=== PATIENT | female | born 1950 | race Caucasian/White ===

== ENCOUNTER 2017-07-17 00:56 | Observation (INO) | payer MEDICARE, OTHER ==
--- NOTE | 2017-07-16 22:36 | HISTORY AND PHYSICAL ---
DATE OF ADMISSION: July 17, 2017 CHIEF COMPLAINT Pelvic pain. HISTORY OF PRESENT ILLNESS The patient is a 67-year-old 5, para 4, with pelvic pain worsening over the past several months. She reports pain with intercourse and during the workup was noted to have leiomyomas within the uterus itself. The intensity was moderate and was aggravated by intercourse. After discussion of risks and alternatives, the patient desired to proceed with laparoscopic-assisted vaginal hysterectomy, bilateral salpingo-oophorectomy, modified Rivera culdoplasty, and diagnostic cystoscopy. MEDICATIONS 1. Vitamin B12. 2. Multivitamin. 3. Co-enzyme Q10. ALLERGIES No known drug allergies. REVIEW OF SYSTEMS GENITOURINARY: Per HPI. GENERAL, SKIN, EYES, EARS, NOSE, MOUTH, NECK, RESPIRATORY, CARDIOVASCULAR, GASTROINTESTINAL, NEUROLOGICAL, AND PSYCHIATRIC: All reviewed and noncontributory. PAST MEDICAL HISTORY Four vaginal deliveries. SURGICAL HISTORY In 2006, she had a hernia repair. FAMILY HISTORY Brother with cancer of the stomach. Father with stroke. Sister with lymphoma. SOCIAL HISTORY She does not drink alcohol. She is an everyday smoker one and a half packs a day. Sexually active. . No illicit drug use. PHYSICAL EXAMINATION VITAL SIGNS: BP 140/82, temp 97.2, weight 99.8. CONSTITUTIONAL: Well-developed, well-nourished female in no distress. SKIN: Without rash or lesions. NECK: Supple, without masses. HEART: Regular rate and rhythm. LUNGS: Clear to auscultation bilaterally. ABDOMEN: Soft, nontender, nondistended. Bowel sounds positive. EXTREMITIES: Nontender. No edema. PSYCHIATRIC: Alert and oriented times three. Normal mood and affect. PELVIC: Normal external female genitalia. Poorly estrogenized vaginal lining. Cervix normal. Uterus anteverted, normal size, and nontender. No adnexal masses or tenderness. ASSESSMENT AND PLAN Pelvic with dyspareunia and leiomyomata. Plan to perform laparoscopic-assisted vaginal hysterectomy, bilateral salpingo-oophorectomy, modified Rivera culdoplasty, and diagnostic cystoscopy. [facility]
[~2017-07-17] VITALS: Ht 149.9 cm; Wt 45.8 kg
[~2017-07-17 00:56] MED LIST: CHOL10005 PO; CYA1000 PO; LOR5/325 PO; MULT1CAP59 PO; NO CURRENT MEDS; OMEP-218 PO; ONDA4TAB9 PO; POTA99TA6 PO; UBID30CA27 PO
[2017-07-17] MEDS ORDERED: fentaNYL CITR 250 MCG/5 ML AMP ONE (08:25)
[2017-07-17] MEDS ORDERED: PROPOFOL EMUL(*) 10MG/ML 20 ML 20 ML ONE (08:31)
[2017-07-17] MEDS ORDERED: LIDOCAINE MPF 1% 5 ML VIAL ONE (08:32)
[2017-07-17] MEDS ORDERED: CELECOXIB 200 MG CAP PO ONE (09:15)
[2017-07-17] MEDS ORDERED: cefOXitin/DEX(*) 2GM/50ML PREM 50 ML IVPB ONE (09:15)
[2017-07-17] MEDS ORDERED: NORMOSOL R SOLN(*) 1000 ML BAG 1,000 ML IV PRN (09:15)
[2017-07-17] MEDS ORDERED: MIDAZOLAM 2 MG/2 ML VIAL IVP ONE (09:15)
[2017-07-17] MEDS ORDERED: HYDROmorphone HCL 2 MG TAB PO ONE (09:15)
[2017-07-17] MEDS ORDERED: LIDOCAINE/SOD BICARB 8.4% SYR ID ONE (09:15)
[2017-07-17] MEDS ORDERED: PHENAZOPYRIDINE 200 MG TAB PO ONE (09:15)
[2017-07-17] MEDS ORDERED: FAMOTIDINE 20 MG TAB PO ONE (09:15)
[2017-07-17 09:29] VITALS: BP 166/94
[2017-07-17 09:30] LABS: PLATELET COUNT, AUTOMATED 217 K/uL (150-450)
[2017-07-17] MEDS ORDERED: SCOPOLAMINE 1.5 MG PATCH TD ONE (09:31)
[2017-07-17] MEDS ORDERED: ROPIVACAINE 0.2% 20 ML VIAL ONE (10:11)
[2017-07-17] MEDS ORDERED: LIDOCAINE/SOD BICARB 8.4% SYR ONE (10:20)
[2017-07-17] MEDS ORDERED: DEXAMETHASONE SOD 4 MG/ML VIAL ONE (10:30)
[2017-07-17] MEDS ORDERED: ROCURONIUM BROM 10 MG/ML 5 ML ONE (10:30)
[2017-07-17] MEDS ORDERED: ONDANSETRON 4 MG/2 ML VIAL ONE (10:30)
[2017-07-17] MEDS ORDERED: SUGAMMADEX SOD 200 MG/2 ML SDV ONE (10:30)
--- NOTE | 2017-07-17 10:39 | Post Operative Note ---
Operative Note - [facility] Operative Day Date: Jul 17, 2017 Time: 10:55 Physicians Surgeon: NOLAN Manager E Learning: MARLY Anesthesia: BE Diagnosis Pre-Op Diagnosis: PELVIC PAIN DYSPAREUNIA LEIOMYOMA Post-Op Diagnosis: SAME Procedure Findings: IRREGULARLY SHAPED UTERUS ATROPHIC OVARIES BILATERALLY BILATERAL URETIC JETS AT END OF PROCEDURE [id number] Procedure(s): LAVH BSO, MMC, DX CYSTO Complications: 0 Fluids Fluids: 1300 CC NR IV Estimated Blood Loss: 75 CC Dictated Date OP Note Dictated: Jul 17, 2017 Time OP Note Dictated: 12:28 Copies to: DAMIAN FRANCISCO MD, JOHN MD Jul 17, 2017 10:39
[2017-07-17] MEDS ORDERED: OXYC-373 PO (10:40)
[2017-07-17] MEDS ORDERED: IBUP800T37 PO (10:40)
--- NOTE | 2017-07-17 10:42 | OB/GYN Discharge Summary ---
Discharge Summary Reason for Hosp/Final Diag: (1) Status post laparoscopic assisted vaginal hysterectomy [place]ates Vital Signs Vital Signs Date Time Temp Pulse Resp B/P (MAP) Pulse Ox O2 Delivery O2 Flow Rate FiO2 07/17/17 09:29 99.3 61 20 166/94 (118) 90 Room Air Weight (Pounds): 101 Result Diagram: 07/17/17 09 Condition: Improved Discharge: Home, Self Senior Care Meds Active Scripts Oxycodone Hcl/Acetaminophen (OXYCODONE-ACETAMINOPHEN 5-325) 1 Each Tablet, 1-2 EACH PO Q4H Y for PAIN, #30 TAB 0 Refills TAKE 1-2 TABLET NEEDED FOR PAIN - NO CLOSER THAN EVERY 4 HOURS. Prov:DAMIAN VARGAS MD 07/17/17 Ibuprofen (IBUPROFEN) 800 Mg Tablet, 1 TAB PO Q8H, #30 TAB 0 Refills Take with food every 8 hours. Prov:DAMIAN VARGAS MD 07/17/17 Reported Medications Cyanocobalamin (Vitamin B-12) (VITAMIN B-12) 1,000 Mcg Tablet, 1000 MCG PO QDAY 07/10/17 Cholecalciferol (Vitamin D3) (VITAMIN D3) 1,000 Unit Tablet, 2000 UNIT PO QDAY, TAB 07/10/17 Multivitamin (MULTIVITAMINS) 1 Each Capsule, 1 EACH PO QDAY, CAPSULE 07/10/17 Ubidecarenone (COQ-10) 30 Mg Capsule, 30 MG PO QDAY, CAPSULE 07/10/17 Potassium Gluconate (POTASSIUM) 99 Mg Tablet, 99 MG PO QDAY 07/10/17 Discontinued Reported Medications [No Current Meds] No Conflict Check 11/28/11 Follow up with: Dr. Vargas [phone] Follow up in: 6 wks PP or PO, 2 wks PO Discharge Diet: As Tolerates Discharge Activity: Pelvic Rest Copies to: DAMIAN VARGAS MD, JOHN MD Jul 17, 2017 10:42
[2017-07-17] MEDS ORDERED: fentaNYL CITR 100 MCG/2 ML AMP ONE ×3 (11:40→12:57)
[2017-07-17] MEDS ORDERED: FAMOTIDINE(*) 20MG/50ML PREMIX 50 ML IVPB PRN (12:23)
[2017-07-17] MEDS ORDERED: DLR(*) 1000 ML BAG 1,000 ML IV PRN (12:23)
[2017-07-17] MEDS ORDERED: PROMETHAZINE 25 MG/ML 1 ML AMP IVP PRN (12:25)
[2017-07-17] MEDS ORDERED: ONDANSETRON 4 MG/2 ML VIAL IV PRN (12:25)
[2017-07-17] MEDS ORDERED: METOCLOPRAMIDE 10 MG/2 ML SDV IV PRN (12:25)
[2017-07-17] MEDS: ACETAMINOPHEN(*)1000 MG/100 ML 100 ML IVPB SCH ×2 (12:43→17:48)
[2017-07-17 13:45] VITALS: BP 149/93
[2017-07-17 14:30] VITALS: BP 141/87
[2017-07-17 14:45] VITALS: BP 143/88
[2017-07-17] MEDS: SIMETHICONE 80 MG CHEW CHEW SCH ×3 (14:50→20:45)
[2017-07-17] MEDS: HYDROmorphone HCL 2 MG TAB PO PRN ×3 (14:50→20:44)
--- NOTE | 2017-07-17 15:07 | OPERATIVE REPORT 1 ---
EVENT DATE: July 17, 2017 SURGEON: Murray Vargas MD ANESTHESIOLOGIST: Gianni Nguyễn MD ANESTHESIA: General. TOBACCO DIPPER: Kristofer Mena MD PREOPERATIVE DIAGNOSES 1. Pelvic pain. 2. Dyspareunia. 3. Leiomyoma. POSTOPERATIVE DIAGNOSES 1. Pelvic pain. 2. Dyspareunia. 3. Leiomyoma. PROCEDURES PERFORMED 1. Laparoscopic-assisted vaginal hysterectomy. 2. Bilateral salpingo-oophorectomy. 3. Modified Rivera culdoplasty. 4. Diagnostic cystoscopy. COMPLICATIONS None. FLUIDS Normosol 1300 mL IV. ESTIMATED BLOOD LOSS 75 mL INDICATIONS The patient is a 67-year-old female with worsening pelvic pain and pressure along with pain with intercourse. She is noted to have leiomyoma on her workup. After discussion of risks and alternatives, the patient desired to proceed with hysterectomy. FINDINGS Uterus was irregularly shaped, 8 x 7 cm. She had atrophic ovaries bilaterally. Bilateral ureteric jets were seen at the end of the procedure with Pyridium- stained urine. DESCRIPTION OF PROCEDURE After informed consent was obtained, the patient was taken to the operating room with the IV running and placed in the supine position where general anesthesia was obtained without difficulty. She was then placed in the [facility], examined under anesthesia with the above the findings, and prepped and draped in the usual fashion. A Izaguirre catheter was placed. A side- out speculum was placed into the vagina. The cervix was grasped with a single- toothed tenaculum. The uterus sounded to 9 cm. The #8 CARLOS uterine manipulator was advanced into the uterine cavity. The remainder of the instruments were removed from the vagina. Legs were lowered. Attention was then turned to the abdomen where 0.2 Naropin was infiltrated into the umbilicus. A skin incision was made with a scalpel. A Veress needle was advanced into the abdominal cavity. Normal CO2 filling pressures were noted. After adequate insufflation, the 5 mm bladeless trocar was advanced under laparoscopic guidance. Intra-abdominal placement was confirmed by laparoscopy. No injuries were noted at the time of entry. There were adhesions in the anterior portion of the abdomen, but no abnormalities were noted in the abdomen or pelvis. The left and right lateral ports were placed in a similar fashion. With 0.2 Naropin, a skin incision was made with the scalpel, and a 5 mm bladeless trocar was advanced under direct visualization. Once the trocars were placed, the patient was placed in the Trendelenburg position. The bowel was allowed to escape from the pelvis. The left tube and ovary were identified. The Gyrus cutting forceps was used to coapt the infundibulopelvic ligament, transecting the ovary and tube away from the pelvic sidewall with the Gyrus cutting forceps down to the round ligament. The round ligament was coapted and transected. Attention was then turned to the right where the right tube and ovary were identified. The infundibulopelvic ligament was grasped with the Gyrus cutting forceps, coapted, and transected, taking the tube and ovary away from the pelvic sidewall with the Gyrus cutting forceps down the round ligament. The round ligament was coapted and transected. The anterior leaf was then from the posterior leaflet of the broad ligament. The anterior leaf was transected down towards the lower uterine segment, creating a bladder flap anteriorly. The posterior leaf of the broad ligament was then coapted and transected down to the right uterosacral ligament. The uterine arteries were coapted at their insertion into the lower uterine segment. Attention was then turned back to the left where the anterior leaflet of the broad ligament was transected down towards the lower uterine segment, completing the bladder flap anteriorly with the Gyrus cutting forceps. The posterior leaflet was then coapted and transected down to the uterosacral ligament. The uterine arteries were identified and coapted at their insertion in the lower uterine segment. The instruments were removed from the abdominal cavity. Attention was turned to the vaginal portion of the case. Legs were elevated. A short weighted speculum was placed into the vagina. The cervix was grasped with Frederick clamps. The cervix was circumscribed with a Bovie. The posterior cul-de-sac was entered sharply with Tijerina scissors. A long weighted speculum replaced the short weighted speculum. The uterosacral ligaments were identified bilaterally, clamped with Yun clamps, transected, and suture ligated with 0 Vicryl. The sutures were tagged for later use in the Rivera culdoplasty. The vaginal lining was transected off the endocervical fascia. The anterior compartment was then entered sharply with Metzenbaum scissors. The cardinal ligaments were then clamped with Yun clamps. The remainder of the pedicle was purchased in the Yun clamps bilaterally, clamped with the Yun clamps, transected, and suture ligated with 0 Vicryl. The uterus was removed from the pelvis. Inspection of the pedicles revealed excellent hemostasis. The peritoneum was purchased at the 12 o'clock position with a 2-0 Vicryl and closed in a counterclockwise fashion in a pursestring manner down to the right uterosacral ligament. The uterosacral ligaments were plicated at the ipsilateral portion of the vaginal lining bilaterally. A short weighted speculum was placed. The posterior peritoneum was then purchased in a pursestring fashion with the Rivera sutures exiting out of the posterior wall of the vagina. The remainder of the pursestring closure was then performed in a pursestring fashion. The vaginal cuff was then closed in a running locked fashion with 2-0 Vicryl down to the level of the uterosacrals. The uterosacrals were plicated at the midline. The posterior cuff was then closed in a running locked fashion. Irrigation was performed. Hemostasis was assured. The Rivera sutures were then tied, elevating the posterior cuff nicely into the vaginal vault. Irrigation was performed. No further bleeding was noted. Cystoscopy was performed after the Izaguirre catheter was removed. Bilateral ureteral jets could be seen with Pyridium-stained urine. No injuries were noted within the bladder. The bladder was drained. The Izaguirre catheter was then replaced. The legs were lowered. The abdomen was reinsufflated, and inspection of the pelvis revealed some oozing from the peritoneal edge on the left side which was made hemostatic with the Gyrus cutting forceps. Irrigation was performed. No further bleeding was noted. No injuries were noted. The gas was allowed to escape from the abdomen. All instruments were removed from the abdomen. The skin was closed with 4-0 Monocryl and Dermabond. The patient was taken out of the [facility], awakened from anesthesia, and taken to the recovery room in stable condition. [facility]
--- NOTE | 2017-07-17 16:43 | OB/GYN Progress Note ---
OB Subjective Progress Notes Subjective Pain controlled, Tolerating diet and activity. GI: NEG Nausea, NEG Vomiting, NEG Flatus Pain: Mild OB Objective Physical Exam Vital Signs Date Time Temp Pulse Resp B/P (MAP) Pulse Ox O2 Delivery O2 Flow Rate FiO2 07/17/17 14:45 97.0 48 143/88 (106) 93 Nasal Cannula 2.0 07/17/17 14:30 12 Intake and Output 07/18/17 07:00 Intake Total 1840 ml Output Total 750 ml Balance 1090 ml Intake Oral 240 ml IV Total 1600 ml Output Urine Total 675 ml Estimated Blood Loss 75 ml Cardiovascular: Regular Rate and Rhythm Respiratory: Clear to Auscultation Abdomen: Soft, Non-Tender, Non-Distended, Bowel Sounds Present Extremities: No Edema Result Diagram: 07/17/17 0920 Assessment and Plan Post Op Day: 0 [employer]GE [employer] Assessment: Stable [employer]ER Plan: Discharge Home Tomorrow Problems: (1) Status post laparoscopic assisted vaginal hysterectomy Assessment & Plan: Pain controlled, Tolerating diet and activity. DAMIAN FRANCISCO MD Jul 17, 2017 16:43
[2017-07-17 19:15] VITALS: BP 121/69
[2017-07-17] MEDS: DOCUSATE CALCIUM 240 MG CAP PO SCH (20:44)
[2017-07-17] MEDS: FAMOTIDINE 20 MG TAB PO SCH (20:45)
[2017-07-17] MEDS: CELECOXIB 200 MG CAP PO SCH (20:45)
[2017-07-18] VITALS: BP 132/77
[2017-07-18] MEDS: ACETAMINOPHEN(*)1000 MG/100 ML 100 ML IVPB SCH (00:19)
[2017-07-18] MEDS: HYDROmorphone HCL 2 MG TAB PO PRN ×2 (04:08→10:05)
[2017-07-18 04:10] VITALS: BP 115/73
[2017-07-18 06:55] LABS: PLATELET COUNT, AUTOMATED 181 K/uL (150-450)
--- NOTE | 2017-07-18 07:12 | OB/GYN Progress Note ---
OB Subjective Progress Notes Subjective Pain controlled, Tolerating diet and activity. GI: NEG Nausea, NEG Vomiting, NEG Flatus Pain: Mild OB Objective Physical Exam Vital Signs Date Time Temp Pulse Resp B/P (MAP) Pulse Ox O2 Delivery O2 Flow Rate FiO2 07/18/17 04:10 99.4 14 115/73 (87) 93 Nasal Cannula 1.0 07/18/17 00:00 55 Cardiovascular: Regular Rate and Rhythm Respiratory: Clear to Auscultation Abdomen: Soft, Non-Tender, Non-Distended, Bowel Sounds Present Extremities: No Edema Result Diagram: 07/18/17 0645 Assessment and Plan Problems: (1) Status post laparoscopic assisted vaginal hysterectomy Assessment & Plan: Pain controlled, Tolerating diet and activity. Will try voiding trial today. DAMIAN FRANCISCO MD Jul 18, 2017 07:12
[2017-07-18] MEDS ORDERED: BISACODYL 10 MG SUPP PR PRN (07:15)
[2017-07-18 07:45] VITALS: BP 128/81
[2017-07-18] MEDS: CELECOXIB 200 MG CAP PO SCH ×2 (09:00→09:28)
[2017-07-18] MEDS: FAMOTIDINE 20 MG TAB PO SCH (09:28)
[2017-07-18] MEDS: DOCUSATE CALCIUM 240 MG CAP PO SCH (09:28)
[2017-07-18] MEDS: SIMETHICONE 80 MG CHEW CHEW SCH (09:29)
[2017-07-18 10:06] VITALS: BP 131/70
[2017-07-19] MEDS ORDERED: INFLUENZA VIRUS VAC 0.5 ML SYR IM ONLY ONE (09:00)
== END 2017-07-18 09:46 | disposition home or self-care (01) ==
LOC: OR 00:56 → UNDOADMOB 13:40 → PED 13:40
PROVIDERS: ADMIT Obstetrics & Gynecology; ATTEND Obstetrics & Gynecology
DX: D25.9 Leiomyoma of uterus, unspecified (principal); R10.2 Pelvic and perineal pain; N94.10 Unspecified dyspareunia
CPT/HCPCS: 36415; 58552; 85025; 88307; A9270; G0378; J0131; J0694; J1100; J2001; J2405; J2704; J2795; J3010